=== PATIENT | male | born 1940 | race Caucasian/White ===

== ENCOUNTER → 2017-10-21 | Outpatient (CLI) | payer MEDICARE, BC ==
[~2017-10-21] VITALS: Ht 177.8 cm; Wt 90.7 kg
[~2017-10-21] MED LIST: ADULT LOW DOSE81 MG PO; AUGMENTIN 875875 MG PO; COLACE 100 MG100 MG; DILTIAZEM ER120 M1 PO; GLYBURIDE 5 MG T5 M1 PO; HYDROCHLOROTHIA25 M1 PO; HYTRIN 5 M5 MG/1 CAP PO; LISINOPRIL20 MG PO; LORCET PLUS 7.51 TA1; NORCO 7.5-3251 EACH PO; PERIDEX 0.12%473 M1 SSP; PREDNISONE 20 M20 M1 PO; PYRIDIUM200 M1; RABANO YOD50 MG/15 M; SERTRALINE HCL100 MG PO; ZOCOR 20 MG TAB20 M1 PO; ZOLOFT 50 MG TA50 M1 PO; ZOLOFT100 MG
[2017-10-21 09:43] VITALS: BP 155/57
[2017-10-21 09:54] LABS: HEMATOCRIT 41.1 % (42.0-52.0); HEMOGLOBIN 13.9 gm/dL (14.0-18.0); MCH 33.7 pg (26.0-34.0); MCHC 33.9 g/dL (28.0-37.0); MCV 99.3 fL (80.0-100.0); MPV 7.9 fl. (7.2-11.1); RBC 4.14 mil/uL (4.50-6.00); RDW-CV 14.8 % (10.5-14.5); WBC 4.7 thou/uL (4.0-11.0)
[2017-10-21 10:00] LABS: CALCIUM 8.8 mg/dL (8.5-10.1); CREATININE 1.4 mg/dL (0.6-1.3); POTASSIUM 4.4 mmol/L (3.5-5.1)
[2017-10-21 10:03] LABS: INR 1.1; PROTIME 10.6 Seconds (9.20-11.50)
[2017-10-21 11:36] VITALS: BP 122/48
[2017-10-21 11:45] VITALS: BP 153/74
[2017-10-21 11:58] VITALS: BP 126/49
== END | disposition home or self-care (01) ==
LOC: M.INT 09:17
PROVIDERS: Radiology Diagnostic Radiology
DX: Z45.2 Encounter for adjustment and management of vascular access device (principal); I10 Essential (primary) hypertension; E11.9 Type 2 diabetes mellitus without complications; Z85.810 Personal history of malignant neoplasm of tongue; Z98.890 Other specified postprocedural states; Z98.49 Cataract extraction status, unspecified eye; Z95.828 Presence of other vascular implants and grafts; Z79.01 Long term (current) use of anticoagulants